=== PATIENT | male | born 1955 | race Caucasian/White ===

== ENCOUNTER 2021-01-22 17:21 | Inpatient (IN) | payer OTHER ==
[~2021-01-22] VITALS: Ht 172.7 cm; Wt 57.6 kg
--- NOTE | 2021-01-22 17:24 | NUR ---
PT BIBRQA FROM [place]RECTION C/O R SIDED CHEST PAIN THAT STARED THIS MORNING. PT DENIES SOB, PT GOWNED AND PLACED ON MONITOR. AAOX3. STABLE VITALS. AWAITING MD PALOMARES.
--- NOTE | 2021-01-22 17:26 | NUR ---
PT BIBRA FRM ADEOLA C/O R SIDED CHEST PAIN SINCE THIS MORNING. STATES BEEN IN PAIN SINCE THEN. DENIES ANY SHORTNESS OF BREATH RELATIONS MGR. GOWNED AND PLACED ON MONITOR. STABLE VITALS RELATIONS MGR. AWAITING MD PALOMARES.
--- NOTE | 2021-01-22 17:26 | NUR ---
DR CISNEROS AT BEDSIDE FOR EVAL.
[2021-01-22] MEDS ORDERED: LAMO100T17 PO (17:44)
[2021-01-22] MEDS ORDERED: LEVE250T2 PO (17:44)
[2021-01-22] MEDS ORDERED: BISA10SU11 RC (17:44)
[2021-01-22] MEDS ORDERED: BUSP5TAB3 PO (17:44)
[2021-01-22] MEDS ORDERED: POLY17PO4 PO (17:44)
[2021-01-22] MEDS ORDERED: DOCU-141 PO (17:44)
[2021-01-22] MEDS ORDERED: ACET-868 PO (17:44)
[2021-01-22] MEDS ORDERED: ALBU6.7H9 IH (17:44)
[2021-01-22] MEDS ORDERED: MULT-754 PO (17:44)
[2021-01-22] MEDS ORDERED: ATOR10TA PO (17:44)
[2021-01-22] MEDS ORDERED: GUAI5SYR4 PO (17:44)
[2021-01-22] MEDS ORDERED: ISOS30TA86 PO (17:44)
[2021-01-22] MEDS ORDERED: ASPI-1420 PO (17:44)
--- NOTE | 2021-01-22 17:59 | NUR ---
IV LINE STARTED. UNABLE TO DRAW BLOOD. [employer] MACHINE OPERATOR AT BEDSIDE FOR BLOOD DRAW.
[2021-01-22 18:05] LABS: BASOPHILS % (AUTO) 1.1 % (0.0-2.0); EOSINOPHILS % (AUTO) 2.2 % (0.0-6.0); HEMATOCRIT 36 % (39-51); HEMOGLOBIN 12.7 g/dL (13.5-17.5); LYMPHOCYTES # (AUTO) 1.5 K/uL (0.8-4.8); LYMPHOCYTES % (AUTO) 32.5 % (20.0-44.0); MEAN CORPUSCULAR HGB CONC 35 g/dl (31.0-36.0); MEAN CORPUSCULAR VOLUME 100 fL (80-96); MONOCYTES # (AUTO) 0.4 K/uL (0.1-1.30); MONOCYTES % (AUTO) 8.9 % (2.0-12.0); NEUTROPHILS # (AUTO) 2.5 K/uL (1.8-8.9); NEUTROPHILS % (AUTO) 55.3 % (43.0-81.0); PLATELET COUNT (AUTO) 172 K/uL (150-450); RED BLOOD CELL COUNT(AUTO) 3.63 MIL/uL (4.5-6.0); WHITE BLOOD COUNT (AUTO) 4.5 K/uL (4.3-11.0)
[2021-01-22 18:20] LABS: CARBON DIOXIDE 25 mmol/L (21-32); CHLORIDE 106 mmol/L (98-107); CREATININE 0.9 mg/dL (0.6-1.3); GLUCOSE 114 mg/dL (74-106); POTASSIUM 3.4 mmol/L (3.5-5.1); SODIUM SERUM 143 mmol/L (136-145); UREA NITROGEN, BLOOD 25 mg/dL (7-18)
[2021-01-22] MEDS ORDERED: ASPIRIN 325 MG TABLET PO ONE (18:30)
[2021-01-22] MEDS ORDERED: NITROGLYCERIN PACKET 1 GM PACKET TOP ONE (18:30)
[2021-01-22 18:35] LABS: ALANINE AMINOTRANSFERASE 22 U/L (12-78); ALBUMIN 3.9 g/dL (3.4-5.0); ALKALINE PHOSPHATASE 66 U/L (46-116); ASPARTATE AMINOTRANSFERASE 15 U/L (15-37); BILIRUBIN,DIRECT 0.1 mg/dL (0.0-0.2); BILIRUBIN,TOTAL 0.4 mg/dL (0.2-1.0); TOTAL PROTEIN, SERUM 7.6 g/dL (6.4-8.2)
[2021-01-22] MEDS ORDERED: POTASSIUM CHLORIDE 20 MEQ TAB.PRT.SR PO ONE ×2 (19:19→19:30)
[2021-01-22] MEDS ORDERED: ASPIRIN 325 MG TABLET ONE (19:19)
--- NOTE | 2021-01-22 19:19 | NUR ---
SPOKE TO LAB REGARDING COVID SWAB.
[2021-01-22] MEDS ORDERED: NITROGLYCERIN PACKET 1 GM PACKET ONE (19:20)
--- NOTE | 2021-01-22 19:20 | NUR ---
CALL BACK NUMBER FOR PURVI [phone] PURVI CABRERA
[2021-01-22] MEDS ORDERED: IV NS 0.9% 500 ML BAG IV ONE (19:30)
--- NOTE | 2021-01-22 20:17 | NUR ---
PER ADM REP PT CAN STAY, AUTH RECEIVED FROM RETAIL SEASONAL SPECIALIST.
--- NOTE | 2021-01-22 21:13 | NUR ---
TELE [phone]-
--- NOTE | 2021-01-22 21:23 | NUR ---
REPORT GIVEN TO JO-ANN SEPULVEDA FOR BETI
[2021-01-22 21:25] VITALS: BP 123/70
--- NOTE | 2021-01-22 21:36 | NUR ---
PT TRANSFERED PER ACLS PROTOCOL
[2021-01-22] MEDS ORDERED: ZOLPIDEM TARTRATE 5 MG TABLET PO PRN (23:00)
[2021-01-23] VITALS: BP 113/63
[2021-01-23] MEDS ORDERED: GUAIFENESIN/CODEINE PHOS 5 ML UDC PO PRN (03:00)
[2021-01-23] MEDS ORDERED: BISACODYL SUPP (10 MG) 10 MG/SUPP.RECT SUPP.RECT RC PRN (03:00)
[2021-01-23] MEDS ORDERED: DOCUSATE SODIUM 100 MG CAPSULE PO PRN (03:00)
[2021-01-23] MEDS ORDERED: POLYETHYLENE GLYCOL 3350 17 GM POWD.PACK PO PRN (03:00)
[2021-01-23] MEDS ORDERED: ACETAMINOPHEN 325 MG TABLET PO PRN (03:00)
[2021-01-23 04:00] VITALS: BP 128/71
[2021-01-23] MEDS ORDERED: ALBUTEROL FS 2.5 MG/3 ML VIAL.NEB NEB PRN (04:00)
[2021-01-23 05:08] LABS: EOSINOPHILS % (AUTO) 3.2 % (0.0-6.0); HEMATOCRIT 37 % (39-51); LYMPHOCYTES # (AUTO) 1.3 K/uL (0.8-4.8); LYMPHOCYTES % (AUTO) 39.5 % (20.0-44.0); MEAN CORPUSCULAR HGB CONC 35 g/dl (31.0-36.0); MEAN CORPUSCULAR VOLUME 101 fL (80-96); MONOCYTES # (AUTO) 0.3 K/uL (0.1-1.30); MONOCYTES % (AUTO) 8.4 % (2.0-12.0); NEUTROPHILS # (AUTO) 1.5 K/uL (1.8-8.9); NEUTROPHILS % (AUTO) 47.9 % (43.0-81.0); PLATELET COUNT (AUTO) 158 K/uL (150-450); RED BLOOD CELL COUNT(AUTO) 3.72 MIL/uL (4.5-6.0); WHITE BLOOD COUNT (AUTO) 3.2 K/uL (4.3-11.0)
[2021-01-23 05:34] LABS: CHOLESTEROL 132 mg/dL (<200); HDL CHOLESTEROL 40 mg/dL (40-60); LDL 72 mg/dL (0-99); TRIGLYCERIDES 129 mg/dL (30-150)
--- NOTE | 2021-01-23 07:30 | NUR ---
BOX TURNER OPENING NOTES RECEIVED PATIENT ON BED, AWAKE, A/O X4. ON ROOM AIR WITH NO COMPLAINTS OF SOB AND PAIN. NOT IN DISTRESS. WITH IV ACCESS AT LEFT WRIST #22, SALINE LOCKED. SAFETY MEASURES IN PLACED. CALL LIGHT WITHIN REACH. BED ON LOWEST AND LOCKED POSITION. SIDE RAILS UP X2. WILL CONTINUE TO MONITOR. .
[2021-01-23 08:00] VITALS: BP 127/75
[2021-01-23] MEDS ORDERED: AMOX-430 PO (08:33)
[2021-01-23] MEDS ORDERED: busPIRone 5 MG TABLET PO SCH (09:00)
[2021-01-23] MEDS ORDERED: MULTIVITAMINS,THERAGRAN 1 UDTAB TABLET PO SCH (09:00)
[2021-01-23] MEDS ORDERED: LEVETIRACETAM (250 MG) 250 MG TABLET PO SCH (09:00)
[2021-01-23] MEDS ORDERED: LamoTRIgine 100 MG TABLET PO SCH (09:00)
[2021-01-23] MEDS ORDERED: PANTOPRAZOLE 40 MG TABLET.DR PO SCH (09:00)
[2021-01-23] MEDS ORDERED: ISOSORBIDE MONONITRATE (30MG) 30 MG TAB.SR.24H PO SCH (09:00)
[2021-01-23] MEDS ORDERED: ASPIRIN EC 81 MG TABLET.DR PO SCH (09:00)
[2021-01-23] MEDS ORDERED: NITROGLYCERIN 0.4 MG/TAB BOTTLE ONE (09:23)
[2021-01-23] MEDS ORDERED: METOPROLOL TARTRATE INJ 5 MG/5 ML AMPUL ONE (09:23)
[2021-01-23] MEDS ORDERED: IV NS 0.9% 500 ML IV PRN (09:30)
[2021-01-23] MEDS ORDERED: NITROGLYCERIN 0.4 MG/TAB BOTTLE SL ONE (09:30)
[2021-01-23] MEDS ORDERED: METOPROLOL TARTRATE INJ 5 MG/5 ML AMPUL IVP PRN (09:30)
[2021-01-23] MEDS ORDERED: IOHEXOL-350 100 ML VIAL IV ONE (09:41)
[2021-01-23] MEDS ORDERED: IV NS 0.9% 250 ML IV ONE (09:42)
[2021-01-23] MEDS ORDERED: CT SWABBABLE VALVE TRANS SET 1 EA INFUS.SET MC ONE (09:42)
[2021-01-23 09:51] VITALS: BP 148/75
--- NOTE | 2021-01-23 09:55 | NUR ---
pt consented to CTA heart; AOx4 denies CP or SOB; given Lopressor 5mg IVPx1 and NTG SLx1; tolerated procedure; VSS; report given to floor COCO Arredondo; trnsferred back to floor via wheelchair Addendum: 01/23/21 at 0959 by LOCO PEREZ RN report given to COCO Galindo; all questions answered
[2021-01-23] MEDS ORDERED: GUAIFENESIN/CODEINE 10 ML UDC PO PRN (14:00)
--- NOTE | 2021-01-23 14:47 | NUR ---
MECHANIC FIELD SERVICECAN INTAKE WORKER NOTES PATIENT ON BED WITH NO COMPLAINT OF PAIN. NO SOB NOTED, NOT IN DISTRESS. FOR DISHAGRE PER DOCTOR RONNA'S ORDER. [facility]CA DONE AND RELAYED RESULTS TO DOCTOR HUBER WHO CLEARED THE PATIENT FOR DISCHARGE. PRESCRIPTION GIVEN TO PATIENT AND DISCHARGE INSTRUCTION PROVIDED. PATIENT VERBALIZED UNDERSTANDING. ALL BELONGINGS CHECKED. [facility]IVING [facility]ACILITY INFORMED THAT THE PATIENT IS COMING BACK. PATIENT WAS PICKED UP BY [facility] VIA GURNEY IN STABLE CONDITION. INSTRUCTED TO FOLLOW UP WITH PCP 1 WEEK AFTER DISCHARGE.
[2021-01-23] MEDS ORDERED: ATORVASTATIN 10 MG TABLET PO SCH (22:00)
== END 2021-01-23 15:10 | DRG 203 ==
LOC: ER 17:25 → TELE 21:16 → MED 01-23 12:12
PROVIDERS: ADMIT Internal Medicine; ATTEND Internal Medicine
DX: R07.89 Other chest pain (principal); B35.1 Tinea unguium; E78.5 Hyperlipidemia, unspecified; G40.909 Epilepsy, unspecified, not intractable, without status epilepticus; G31.84 Mild cognitive impairment of uncertain or unknown etiology; H54.62 Unqualified visual loss, left eye, normal vision right eye; I10 Essential (primary) hypertension; Z20.822 Contact with and (suspected) exposure to COVID-19; Z79.51 Long term (current) use of inhaled steroids; Z79.82 Long term (current) use of aspirin; Z79.899 Other long term (current) drug therapy; J20.9 Acute bronchitis, unspecified; J45.909 Unspecified asthma, uncomplicated
CPT/HCPCS: 36415; 71045-TC; 75574; 80048-TC; 80061-TC; 80076-TC; 83880; 84484-TC; 85025-TC; 85730-TC; 87081-TC; 93307-TC; C9803; G0378; J3490; J7040; J7050; Q9967